=== PATIENT | female | born 1995 | race American Indian/Alaskan Native ===

== ENCOUNTER 2018-05-21 05:11 | Emergency (ER) | payer MEDICAID ==
[2018-05-21 07:23] LABS: Basophils # (Auto) 0.1 K/mm3 (0.0-0.1); Basophils % (Auto) 0.8 % (0.0-1.8); Eosinophils # (Auto) 0.2 K/mm3 (0.0-0.4); Eosinophils % (Auto) 1.6 % (0.0-4.3); Hematocrit 40.2 % (30.3-42.9); Hemoglobin 13.4 gm/dl (10.1-14.3); Lymphocytes # (Auto) 2.3 K/mm3 (1.2-5.4); Lymphocytes % (Auto) 23.6 % (13.4-35.0); Mean Corpuscular HGB Conc 33 % (30-34); Mean Corpuscular Hemoglobin 29 pg (28-32); Mean Corpuscular Volume 88 fl (79-97); Monocytes # (Auto) 0.6 K/mm3 (0.0-0.8); Monocytes % (Auto) 6.2 % (0.0-7.3); Platelet Count 172 K/mm3 (140-440); Red Blood Count 4.56 M/mm3 (3.65-5.03); Red Cell Distribution Width 14.4 % (13.2-15.2)
--- NOTE | 2018-05-21 09:32 | Ultrasound Report ---
ULTRASOUND OB LESS THAN 14 WEEKS FETUS ULTRASOUND OB TRANSVAGINAL History: Vaginal bleeding. 12 weeks per the patient. Technique: Transabdominal and transvaginal imaging. Findings: No comparison at this facility. The uterus measures 12 x 5 x 7 cm. The endometrium is thickened and complex measuring up to 2.5 cm in thickness. No normal intrauterine gestational sac containing a heart rate is identified. The ovaries are unremarkable. Impression: No normal intrauterine is detected. The endometrium is complex and thickened consistent with an impending or retained products of conception. Please correlate with the patient's clinical presentation.
--- NOTE | 2018-05-21 10:11 | Emergency Department Report ---
ED HPI - General Chief complaint: Vaginal Bleeding Stated complaint: VAGINAL BLEEDING Time Seen by Provider: 05/21/18 10:08 Source: patient Mode of arrival: Ambulatory Limitations: No Limitations - History of Present Illness Initial comments: This is a 22-year-old -[place] female presents with vaginal bleeding and . Patient states she was at work overnight around 0330 am she started having abdominal pain and vaginal bleeding. The patient states when she wiped she noticed a large amount of blood clots in toilet and on tissue. She called her supervisor [employer] who advised to follow-up in the emergency room. Patient reports last menstrual period 02/25/2018 A3. Patient states she is not followed by [facility] because Medicaid just recently approved. Patient states she had an ultrasound at 8 weeks gestation and grating which was normal. Patient denies frequency, urgency, dysuria, and back pain. MD Complaint: abdominal pain, vaginal bleeding Onset/Timin -: hour(s) Time: 03:30 Location: abdomen Radiation: none Severity: moderate Severity scale (0 -10): 5 Quality: cramping Consistency: intermittent Improves with: none Worsens with: none Associated symptoms: vaginal bleeding, abdominal pain Vaginal bleeding: heavy, clots :: Yes Number of weeks : 12 OB History - Current : no complications OB History - Previous Pregnancies: miscarriage Last menstrual period: 02/25/18 Pre- care: previous ultrasound confi - Related Data : 3 Para: 0 Ab: 3 Previous Rx's Medication Instructions Recorded Last Taken Type Acetaminophen/Codeine [Tylenol 1 tab PO Q8H PRN #3 tab 05/21/18 Unknown Rx /Codeine # 3 tab] Allergies Allergy/AdvReac Type Severity Reaction Status Date / Time No Known Allergies Allergy Unverified 05/21/18 06:36 ED Review of Systems ROS: Stated complaint: VAGINAL BLEEDING Other details as noted in HPI Constitutional: denies: chills, fever Respiratory: denies: cough, shortness of breath, wheezing Cardiovascular: denies: chest pain, palpitations Gastrointestinal: abdominal pain. denies: nausea, diarrhea Genitourinary: other (vaginal bleeding). denies: urgency, dysuria Skin: denies: rash, lesions Neurological: denies: headache, weakness, paresthesias Psychiatric: denies: anxiety, depression ED Past Medical Hx - Past Medical History Previous Medical History?: No - Surgical History Past Surgical History?: No - Social History Smoking Status: Never Smoker Substance Use Type: None - Medications Home Medications: Home Medications Medication Instructions Recorded Confirmed Last Taken Type Acetaminophen/Codeine [Tylenol 1 tab PO Q8H PRN #3 tab 05/21/18 Unknown Rx /Codeine # 3 tab] ED Physical Exam - General Limitations: No Limitations General appearance: alert, in no apparent distress - Respiratory Respiratory exam: Present: normal lung sounds bilaterally. Absent: respiratory distress - Cardiovascular Cardiovascular Exam: Present: regular rate, normal rhythm. Absent: systolic murmur, diastolic murmur, rubs, gallop - GI/Abdominal GI/Abdominal exam: Present: soft, tenderness (suprapubic tenderness), normal bowel sounds. Absent: distended, guarding, rebound, rigid - Back Exam Back exam: Present: normal inspection - Neurological Exam Neurological exam: Present: alert, oriented X3 - Psychiatric Psychiatric exam: Present: normal affect, normal mood - Skin Skin exam: Present: warm, dry, intact, normal color. Absent: rash ED Course Vital Signs 05/21/18 06:30 Temperature 98.6 F Pulse Rate 74 Respiratory 18 Rate Blood Pressure 122/65 O2 Sat by Pulse 99 Oximetry ED Medical Decision Making - Lab Data Result diagrams: 05/21/18 06:57 Lab Results 05/21/18 05/21/18 Range/Units 06:57 06:57 WBC 9.6 (4.5-11.0) K/mm3 RBC 4.56 (3.65-5.03) M/mm3 Hgb 13.4 (10.1-14.3) gm/dl Hct 40.2 (30.3-42.9) % MCV 88 (79-97) fl MCH 29 (28-32) pg MCHC 33 (30-34) % RDW 14.4 (13.2-15.2) % Plt Count 172 (140-440) K/mm3 Lymph % (Auto) 23.6 (13.4-35.0) % [place] % (Auto) 6.2 (0.0-7.3) % Eos % (Auto) 1.6 (0.0-4.3) % Baso % (Auto) 0.8 (0.0-1.8) % Lymph # 2.3 (1.2-5.4) K/mm3 [place] # 0.6 (0.0-0.8) K/mm3 Eos # 0.2 (0.0-0.4) K/mm3 Baso # 0.1 (0.0-0.1) K/mm3 Seg Neutrophils % 67.8 (40.0-70.0) % Seg Neutrophils # 6.5 (1.8-7.7) K/mm3 HCG, Quant 1158 H (0-4) mIU/mL - Radiology Data Radiology results: report reviewed, image reviewed ULTRASOUND OB LESS THAN 14 WEEKS FETUS ULTRASOUND OB TRANSVAGINAL History: Vaginal bleeding. 12 weeks per the patient. Technique: Transabdominal and transvaginal imaging. Findings: No comparison at this facility. The uterus measures 12 x 5 x 7 cm. The endometrium is thickened and complex measuring up to 2.5 cm in thickness. No normal intrauterine gestational sac containing a heart rate is identified. The ovaries are unremarkable. Impression: No normal intrauterine is detected. The endometrium is complex and thickened consistent with an impending or retained products of conception. Please correlate with the patient's clinical presentation. - Medical Decision Making This is a 22 y.o. female presents with vaginal bleeding during since this morning. Patient was examined by me. Vitals are normal and patient is in no acute distress. Obtained labs and OB ultrasound. Quant 1158 all other labs unremarkable. Consulted Dr. Meyer [facility] who advised to have patient follow-up in office in the morning. Patient instructed to have repeat hCG quant in 24-48 hours with [facility] or in ER to r/o ectopic/impending . Patient discharged home in stable condition. Critical care attestation.: If time is entered above; I have spent that time in minutes in the direct care of this critically ill patient, excluding procedure time. ED Disposition Clinical Impression: Vaginal bleeding affecting early , Threatened miscarriage Disposition: DC-01 TO HOME OR SELFCARE Is pt being admited?: No Does the pt Need Aspirin: No Condition: Stable Instructions: Threatened Miscarriage (ED) Additional Instructions: Have repeat hCG quant labs in 48 hours with [facility] or ER. Current hCG 1158. Follow up with [facility] in 24-48 hours. Return to ER if increased vaginal bleeding, abdominal pain, and low back pain. Prescriptions: Acetaminophen/Codeine [Tylenol /Codeine # 3 tab] 1 tab PO Q8H PRN #3 tab PRN Reason: Pain , Severe (7-10) Referrals: DEE MEYER MD [Staff Physician] - 3-5 Days [facility] [Provider Group] - 3-5 Days [facility] [Provider Group] - 3-5 Days Forms: Work/School Release Form(ED) Time of Disposition: 10:48 Print Language: GHANAIAN
[2018-05-21 10:54] LABS: Bacteria,Urine 2+ /HPF (Negative); Bilirubin,Urine NEG (Negative); Blood,Urine LG (Negative); Color,Urine Red (Yellow); Mucus,Urine FEW /HPF; Urobilinogen,Urine < 2.0 mg/dL (<2.0)
[2018-05-21 10:55] LABS: RBC,Urine > 182.0 /HPF (0.0-6.0); WBC,Urine > 182.0 /HPF (0.0-6.0)
[2018-05-21 11:03] VITALS: BP 138/70
== END 2018-05-21 11:02 | disposition home or self-care (01) ==
LOC: ED 05:11
DX: O20.0 Threatened abortion (principal); Z3A.12 12 weeks gestation of pregnancy
CPT/HCPCS: 36415; 76801; 76817; 81001; 84702; 85025

== ENCOUNTER 2018-05-23 06:04 | Day surgery (SDC) | payer MEDICAID, OTHER ==
[2018-05-23] MEDS ORDERED: NARCAN 0.4 MG/1 ML IV PRN (07:20)
[2018-05-23] MEDS ORDERED: ZOFRAN IV PRN (07:20)
[2018-05-23] MEDS ORDERED: PERCOCET 5/325 PO PRN (07:20)
[2018-05-23] MEDS ORDERED: DEMEROL IV PRN (07:20)
--- NOTE | 2018-05-23 07:20 | Anesthesia Consultation ---
Anesthesia Consult and Med Hx Date of service: 05/23/18 - Airway Anesthetic Teeth Evaluation: Good (patient complains of right upper and lower dental discomfort. No loose teeth. Takes no prescription drugs) ROM Head & Neck: Adequate Mental/Hyoid Distance: Adequate Mallampati Class: Class II Intubation Access Assessment: Good - Pulmonary Exam CTA: Yes - Cardiac Exam Cardiac Exam: RRR - Pre-Operative Health Status ASA Pre-Surgery Classification: ASA2 Proposed Anesthetic Plan: General - Pre-Anesthesia Comment Pre-Anesthesia Comments: Patient states she is at least 12 weeks gestation. Never any exposure to anesthetics. Unsure of family history of anesthetic tolerance. Tolerates 6 METS. No chest pain or SOB. No cold or flu. No N/V - Pulmonary Hx Smoking: No Hx Asthma: No Hx Respiratory Symptoms: No - Cardiovascular System Hx Hypertension: No - Central Nervous System Hx Neuromuscular Disorder: No - Gastrointestinal Hx Ulcer: No Hx Gastroesophageal Reflux Disease: No - Endocrine Hx Renal Disease: No - Other Systems Hx Alcohol Use: No Hx Substance Use: No
--- NOTE | 2018-05-23 07:20 | Anesthesia Day of Surgery ---
Anesthesia Day of Surgery - Day of Surgery Patient Examined: Yes Patient H&P Reviewed: Yes Patient is NPO: Yes
[2018-05-23] MEDS ORDERED: XYLOCAINE MPF 2% ONE (07:30)
[2018-05-23] MEDS ORDERED: SUBLIMAZE ONE (07:30)
[2018-05-23] MEDS ORDERED: DIPRIVAN 10 MG/ML IV ONE (07:30)
[2018-05-23] MEDS ORDERED: METHERGINE IM ONE (07:35)
[2018-05-23] MEDS ORDERED: SILVER NITRATE TP ONE (07:35)
--- NOTE | 2018-05-23 07:35 | Short Stay Summary ---
Short Stay Documentation Date of service: 05/23/18 Narrative H&P: Pt is a 22-year-old -Chinese female LMP 02/25/18 presented to [facility] ER with vaginal bleeding and . She was at work overnight when she started having abdominal pain and vaginal bleeding. The patient states when she wiped she noticed a large amount of blood clots in toilet and on tissue. She did not have care, but pelvic u/s done 05/21/18 showed retained POC. She now presents for a D&C due to retained POC. - History Principal diagnosis: Retained POC H&P: obtained from office Past Medical History: No medical history Past Surgical History: No surgical history Social history: no significant social history, single - Allergies and Medications Current Medications: Allergies No Known Allergies Allergy (Unverified 05/21/18 06:36) Home Medications Medication Instructions Recorded Confirmed Last Taken Type Acetaminophen/Codeine [Tylenol 1 tab PO Q8H PRN #3 tab 05/21/18 Unknown Rx /Codeine # 3 tab] Active Medications Hydromorphone HCl (Dilaudid) 0.5 mg IV Q10MIN PRN PRN Reason: Pain , Severe (7-10) Stop: 05/23/18 20:00 Lactated Ringer's (Lactated Ringers) 1,000 mls @ 75 mls/hr IV DIRECT SHIVA Meperidine HCl (Demerol) 25 mg IV ONCE PRN PRN Reason: Shivering Stop: 05/23/18 20:00 Naloxone HCl (Narcan 0.4 Mg/1 Ml) 0.1 mg IV Q2MIN PRN PRN Reason: Res Rate </= 8 or 02 SAT < 92% Ondansetron HCl (Zofran) 4 mg IV ONCE PRN PRN Reason: Nausea And Vomiting Oxycodone/Acetaminophen (Percocet 5/325) 1 tab PO ONCE PRN PRN Reason: Pain, Moderate (4-6) - Physical exam General appearance: mild distress Integumentary: no rash HEENT: Atraumatic Lungs: Clear to auscultation Breasts: deferred Heart: Regular rate Gastrointestinal: normal Female Genitourinary: deferred Extremities: no ischemia, No edema Neurological: Normal gait, Normal speech - Brief post op/procedure progress note Date of procedure: 05/23/18 Pre-op diagnosis: 1. Retained products of conception 2. Missed Post-op diagnosis: same Procedure: Dilatation and curettage Anesthesia: MAC Findings: A 10 week size uterus with moderate amounts of products of conception Surgeon: DEE NAYAK Estimated blood loss: 50-100ml Pathology: list (POC) Specimen disposition: to lab Condition: stable - Hospital course Hospital course: Unremarkable. - Disposition Condition at discharge: Good Disposition: DC- TO HOME OR SELFCARE - Discharge Diagnoses (1) Retained products of conception after miscarriage Status: Resolved (2) Incomplete Status: Resolved Short Stay Discharge Plan Activity: no restrictions Diet: regular Follow up with: PRIMARY CAREMD [Primary Care Provider] - 7 Days DEE NAYAK MD [Staff Physician] - 14 Days Forms: Outpatient Surgery DC Inst. Prescriptions: Doxycycline [Vibramycin CAP] 100 mg PO Q12HR #14 capsule Ibuprofen [Motrin] 800 mg PO Q8HR PRN #30 tablet PRN Reason: Pain, Moderate (4-6) Methylergonovine [Methergine] 0.2 mg PO Q8HR #6 tablet
[2018-05-23] MEDS ORDERED: LACTATED RINGERS 1,000 ML IV SCH (08:00)
[2018-05-23] MEDS ORDERED: ANCEF/STERILE WATER 2 GM/20 ML 2 GM/20 ML SYRINGE IV NR (08:00)
[2018-05-23] MEDS ORDERED: VERSED ONE (09:01)
[2018-05-23] MEDS ORDERED: ZOFRAN ONE (09:14)
[2018-05-23] MEDS ORDERED: DECADRON ONE (09:14)
[2018-05-23] MEDS ORDERED: TORADOL ONE (09:21)
--- NOTE | 2018-05-23 09:41 | Operative Report ---
Operative Report Operative Report: PREOPERATIVE DIAGNOSIS: 1. Retained products of conception 2. Missed POSTOPERATIVE DIAGNOSIS: Same OPERATIVE PROCEDURE: Dilatation and curettage. SURGEON: Chemo Meyer MD ANESTHESIA: Gen. mask ANESTHESIOLOGIST: Dr. Baker ESTIMATED BLOOD LOSS: 50 mL FINDINGS: A 10 week size uterus with moderate amounts of products of conception COMPLICATIONS: None COUNTS: Correct x3. PROCEDURE: After the patient was correctly identified, and after general anesthesia was administered, the patient was prepped and draped in the usual sterile fashion and placed in dorsal lithotomy position. First, the bladder was emptied using a straight catheter. Next, a speculum was placed in the vaginal vault and the anterior lip of the cervix was grasped using a single- tooth tenaculum. The uterus was sounded to 10 cm. The cervical os was sequentially dilated, and an 10 mm vaccurette was used to suction blood and products of conception from the uterine cavity. After all the products of conception were removed, the procedure was considered complete. All instruments were removed from the vagina. The patient tolerated the procedure well and was transferred to the recovery room in stable condition.
[2018-05-23] MEDS: DILAUDID IV PRN ×2 (09:45→09:55)
[2018-05-23 10:22] VITALS: BP 120/68
--- NOTE | 2018-05-23 10:28 | Post Anesthesia Evaluation ---
- Post Anesthesia Evaluation Patient Participated: Yes Airway Patent: Yes Stable Respiratory Function: Yes Nausea/Vomiting: No Temp > 96.8F: Yes Pain Manageable: Yes Adequeate Hydration: Yes Anesthesia Complications: No
== END 2018-05-23 10:50 | disposition home or self-care (01) ==
LOC: OR 06:04
PROVIDERS: ATTEND Obstetrics & Gynecology
DX: O02.1 Missed abortion (principal); Z3A.10 10 weeks gestation of pregnancy; Z79.899 Other long term (current) drug therapy; Z98.890 Other specified postprocedural states
CPT/HCPCS: 59820; 86900; 86901; 88305; J0690; J1100; J1170; J1885; J2250; J2405; J2704; J3010; J7120; J2210